=== PATIENT | female | born 1990 | race Two or more races ===

== ENCOUNTER 2020-01-21 10:00 | Emergency (ER) | payer OTHER ==
[~2020-01-21] VITALS: Ht 157.5 cm; Wt 70.0 kg
[2020-01-21 10:09] VITALS: BP 119/75
== END 2020-01-21 11:41 | disposition home or self-care (01) ==
LOC: EEVIPCON 10:05 → EMS 10:05
DX: Z11.1 Encounter for screening for respiratory tuberculosis (principal)
CPT/HCPCS: 71045-TC

== ENCOUNTER 2020-07-31 17:41 | Emergency (ER) | payer OTHER ==
[~2020-07-31] VITALS: Ht 157.5 cm; Wt 68.2 kg
[2020-07-31 20:03] VITALS: BP 114/81
== END 2020-07-31 20:04 ==
LOC: EMS 17:41
DX: Z11.1 Encounter for screening for respiratory tuberculosis (principal)
CPT/HCPCS: 99283; 71046; 71046-TC